=== PATIENT | female | born 1980 | race Caucasian/White ===

== ENCOUNTER 2021-02-25 10:23 | Emergency (ER) | payer OTHER ==
[2021-02-25] MEDS ORDERED: ACETAMINOPHEN 500 MG TAB ONE (11:31)
--- NOTE | 2021-02-25 12:13 | RAD REPORT ---
EXAM DESCRIPTION: RAD - Chest Pa And Lat (2 Views) - 02/25/2021 12:04 pm CLINICAL HISTORY: COUGH COMPARISON: None TECHNIQUE: Frontal and lateral views of the chest were obtained. FINDINGS: The lungs are clear. Heart size is normal and central vasculature is within normal limit s. No pleural effusion or pneumothorax seen. No acute bony finding noted. No aortic abnormality. IMPRESSION: No acute cardiopulmonary process.
[2021-02-25 12:49] LABS: SARS-COV-2 RT PCR NEGATIVE (NEGATIVE)
--- NOTE | 2021-02-25 13:42 | ER ---
Nurse's Notes [facility] Name: Missy Maradiaga Age: 40 yrs Sex: Female : 1980 Arrival Date: 02/25/2021 Time: 10:24 Bed Waiting Private MD: Diagnosis: Acute bronchitis, unspecified Presentation: 02/25 11:20 Chief complaint: Patient states: cough, congestion, diarrhea, and dizziness since vg1 02/21/21. Was exposed to covid on 02/14/21. Coronavirus screen: Vaccine status: Patient reports being unvaccinated. Client denies travel out of the [place] in the last 14 days. Client presents with at least one sign or symptom that may indicate coronavirus-19. Standard/surgical mask placed on the client. Ebola Screen: Patient negative for fever greater than or equal to 101.5 degrees Fahrenheit, and additional compatible Ebola Virus Disease symptoms. Initial Sepsis Screen: Does the patient meet any 2 criteria? RR > 20 per min. HR > 90 bpm. Yes Does the patient have a suspected source of infection? No. Patient's initial sepsis screen is negative. Risk Assessment: Do you want to hurt yourself or someone else? Patient reports no desire to harm self or others. Onset of symptoms was February 21, 2021. 11:20 Method Of Arrival: Wheelchair vg1 11:20 Acuity: FARTUN 3 vg1 Triage Assessment: 11:23 General: Appears in no apparent distress. uncomfortable, Behavior is calm, cooperative. vg1 Pain: Complains of pain in throat Pain currently is 7 out of 10 on a pain scale. Respiratory: Reports cough that is productive, Onset: The symptoms/episode began/occurred 02/21/21, the patient has mild shortness of breath. 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 - Social history:: Smoking status: Patient denies any tobacco usage or history of. Assessment: 14:51 Reassessment: Patient appears in no apparent distress at this time. No changes from vg1 previously documented assessment. Patient and/or family updated on plan of care and expected duration. Pain level reassessed. Patient is alert, oriented x 3, equal unlabored respirations, skin warm/dry/pink. Vital Signs: 11:20 BP 137 / 86; Pulse 112; Resp 22; Temp 100.0; Pulse Ox 100% ; Weight 154.22 kg; Height 5 vg1 ft. 8 in. (172.72 cm); Pain 7/10; 14:51 BP 136 / 82; Pulse 97; Resp 20; Temp 98.8; Pulse Ox 100% ; vg1 11:20 Body Mass Index 51.70 (154.22 kg, 172.72 cm) vg1 ED Course: 10:24 Patient arrived in ED. as 11:23 Triage completed. vg1 11:23 Arm band placed on. vg1 11:28 COVID swab sent to lab. Flu and/or RSV swab sent to lab. Strep swab sent to lab. vg1 11:29 Quincy Mckinnon PA is PHCP. cp 11:29 Johnnie Woodson MD is Attending Physician. cp 12:04 Chest Pa And Lat (2 Views) XRAY In Process Unspecified. EDMS Administered Medications: 11:30 Drug: Tylenol 1000 mg Route: PO; vg1 14:51 Follow up: Response: No adverse reaction; Temperature is decreased vg1 14:51 Drug: Tessalon Perle (benzonatate) 200 mg Route: PO; vg1 14:51 Follow up: Response: Medication administered at discharge. vg1 Outcome: 13:42 Discharge ordered by . cp 14:52 Patient left the ED. vg1 Signatures: Dispatcher [employer] EDMS Antionette Ngo as Quincy Mckinnon PA PA cp Garcia, Victoria, RN RN vg1 Corrections: (The following items were deleted from the chart) 11:24 11:23 Allergies: No Known Allergies; vg1 vg1
--- NOTE | 2021-02-25 13:42 | EDPHYS ---
Physician Documentation [facility] Name: Missy Maradiaga Age: 40 yrs Sex: Female : 1980 Arrival Date: 02/25/2021 Time: 10:24 Bed Waiting Private MD: ED Physician Johnnie Woodson HPI: 02/25 11:29 This 40 yrs old Female presents to ER via Wheelchair with complaints of Shortness Of cp Breath, Fever, Dizziness. 11:29 The patient or guardian reports cough, that is intermittent. cp 11:29 Onset: The symptoms/episode began/occurred 4 day(s) ago. Associated signs and symptoms: cp Pertinent positives: fever, rhinorrhea, sore throat, shortness of breath, Pertinent negatives: diarrhea, vomiting. Severity of symptoms: in the emergency department the symptoms are unchanged despite home interventions. 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 - Social history:: Smoking status: Patient denies any tobacco usage or history of. ROS: 11:33 Constitutional: Positive for chills, Negative for fever, poor PO intake. cp 11:33 Eyes: Negative for injury, pain, redness, and discharge. cp 11:33 ENT: Positive for sore throat, Negative for drainage from ear(s), ear pain, difficulty swallowing, difficulty handling secretions. 11:33 Respiratory: Positive for cough, Negative for wheezing. 11:33 Abdomen/GI: Positive for diarrhea, Negative for abdominal pain, vomiting, constipation. 11:33 Neuro: Positive for dizziness, Negative for altered mental status, headache, weakness. 11:33 All other systems are negative. Exam: 11:35 Constitutional: The patient appears in no acute distress, alert, awake, non-toxic, well cp developed, well nourished, obese. 11:35 Head/Face: Normocephalic, atraumatic. cp 11:35 Eyes: Periorbital structures: appear normal, Conjunctiva: normal, no exudate, no injection, Sclera: no appreciated abnormality, Lids and lashes: appear normal, bilaterally. 11:35 ENT: External ear(s): are unremarkable, Ear canal(s): are normal, clear, TM's: dullness, bilaterally, Nose: nasal drainage, and is seen coming from both nares, that is clear, Mouth: Lips: moist, Oral mucosa: moist, Posterior pharynx: Airway: no evidence of obstruction, patent, Tonsils: no enlargement, no exudate, erythema, that is mild, exudate, is not appreciated. 11:35 Neck: ROM/movement: is normal, is supple, without pain, no range of motions limitations, no meningismus, Lymph nodes: no appreciated lymphadenopathy. 11:35 Chest/axilla: Inspection: normal, Palpation: is normal, no crepitus, no tenderness. 11:35 Cardiovascular: Rate: tachycardic, Rhythm: regular, Edema: is not appreciated, JVD: is not appreciated. 11:35 Respiratory: the patient does not display signs of respiratory distress, Respirations: normal, no use of accessory muscles, no retractions, labored breathing, is not present, Breath sounds: decreased breath sounds, are not appreciated, stridor, is not appreciated, + upper airway congestion. wheezing: is not appreciated. 11:35 Abdomen/GI: Exam negative for discomfort, distension, guarding, Inspection: abdomen appears normal. 11:35 Back: pain, is absent, ROM is normal. Vital Signs: 11:20 BP 137 / 86; Pulse 112; Resp 22; Temp 100.0; Pulse Ox 100% ; Weight 154.22 kg; Height 5 vg1 ft. 8 in. (172.72 cm); Pain 7/10; 14:51 BP 136 / 82; Pulse 97; Resp 20; Temp 98.8; Pulse Ox 100% ; vg1 11:20 Body Mass Index 51.70 (154.22 kg, 172.72 cm) vg1 MDM: 12:00 Differential diagnosis: asthma, Bronchitis pneumonia, influenza, strep throat. cp 13:42 Patient medically screened. cp 13:42 Data reviewed: vital signs, nurses notes, lab test result(s), radiologic studies, plain cp films. 13:42 Test interpretation: by ED physician or midlevel provider: plain radiologic studies. cp 02/25 11:26 Order name: COVID-19/FLU A+B (Document "Date of Onset" if Symptomatic); Complete Time: vg1 13:06 02/25 13:06 Interpretation: Reviewed. cp 02/25 11:26 Order name: Strep vg1 02/25 11:27 Order name: Chest Pa And Lat (2 Views) XRAY; Complete Time: 13:06 1 02/25 12:15 Order name: Throat Culture EDMS Administered Medications: 11:30 Drug: Tylenol 1000 mg Route: PO; vg1 14:51 Follow up: Response: No adverse reaction; Temperature is decreased vg1 14:51 Drug: Tessalon Perle (benzonatate) 200 mg Route: PO; vg1 14:51 Follow up: Response: Medication administered at discharge. vg1 Disposition: 15:35 Co-signature as Attending Physician, Johnnie Woodson MD I agree with the assessment and kdr plan of care. Disposition Summary: 02/25/21 13:42 Discharge Ordered Location: Home cp Problem: new cp Symptoms: have improved cp Condition: Stable cp Diagnosis - Acute bronchitis, unspecified cp Followup: cp - With: Private Physician - When: 2 - 3 days - Reason: Worsening of condition Discharge Instructions: - Discharge Summary Sheet cp - Acute Bronchitis, Adult cp Forms: - Medication Reconciliation Form cp - Thank You Letter cp - Antibiotic Education cp - Prescription Opioid Use cp Prescriptions: - albuterol sulfate 90 mcg/actuation Inhalation HFA aerosol inhaler - inhale 2 puff by INHALATION route every 6 hours; 1 Inhaler; Refills: 0, Product cp Selection Permitted - Tessalon Perles 100 mg Oral Capsule - take 2 capsule by ORAL route every 8 hours As needed; 30 capsule; Refills: 0, cp Product Selection Permitted - Zithromax Z-Eyad 250 mg Oral Tablet - take 1 tablet by ORAL route as directed for 5 days Day 1 - take two (2) tablets cp one time. Day 2, 3, 4 , 5 take one (1) tablet once daily.; 6 tablet; Refills: 0, Product Selection Permitted Signatures: Dispatcher [employer] EDMS Johnnie Woodson MD MD kdr Page, Corey, PA PA cp Garcia, Victoria, RN RN vg1 Corrections: (The following items were deleted from the chart) 11:24 11:23 Allergies: No Known Allergies; vg1 vg1
[2021-02-25] MEDS ORDERED: BENZONATATE 100 MG CAP PO ONE (14:45)
[2021-02-25 15:15] VITALS: O2SAT 100
[2021-02-25 15:17] VITALS: BP 136/82; TEMP 98.8
== END 2021-02-25 14:52 | disposition home or self-care (01) ==
LOC: ER 10:23
DX: J20.9 Acute bronchitis, unspecified (principal); Z20.822 Contact with and (suspected) exposure to COVID-19; Z88.6 Allergy status to analgesic agent
CPT/HCPCS: 87070; 87081; 0240U; 71046; 99283